=== PATIENT | male | born 1985 | race Hispanic/Latino ===

== ENCOUNTER 2024-06-11 17:05 | Inpatient (IN) | payer SELFPAY ==
[2024-06-11 17:06] VITALS: BP 155/99; PULSE 81; RESP 18; TEMP 37.1; O2SAT 98; BMI 31.9
--- NOTE | 2024-06-11 18:26 | EDS_ITS ---
HPI History of Present Illness Chief Complaint: Substance Abuse Informant: patient Onset/Context/Timing Onset: Today Context: Gradual Onset Timing: Continuous Quality: Anxiety Location: Generalized Worsened by: Nothing Relieved by: Nothing Associated Symptoms Associated Symptoms: Positive for vomiting* and diarrhea*; Negative for fever*, rash*, seizure, tremor, palpatations, change in mental status, suicidal ideation or homicidal ideation Narrative Narrative: Patient presents requesting detox from Xanax. Patient states he started himself on Xanax due to seasonal depression. Patient states he had been taking 2 mg but weaned himself down to 1 mg. Patient states he was attempting to wean himself off of the Xanax at home. Patient states that he started having some anxiety, sweating, stomach cramping, insomnia, and decreased appetite. Patient also states he was feeling very irritable when he would wean his Xanax down. Patient admits to some vomiting and diarrhea. Patient denies any suicidal homicidal ideations. Patient admits to some subjective chills and sweats. Patient states he has never been to detox in the past. Patient states he normally takes 1 mg of Xanax per day. Patient states his last dose was 8 AM today. [facility] Medical History Substance abuse Anxiety Depression Non-smoker Hypertension GERD (gastroesophageal reflux disease) Medical History no medical history Home Medications ?Medication ?Instructions ?Recorded ?Last Taken ?Type anastrozole 06/11/24 Unknown History enclomifene 12.5 mg PO .twice a week 06/11/24 Unknown History omeprazole 20 mg capsule,delayed 20 mg PO DAILY 06/11/24 Unknown History release Allergy/AdvReac Type Severity Reaction Status Date / Time No Known Allergies Allergy Verified 06/11/24 17:06 Surgical History no surgical history no surgical history Social History Smoking Status: Never smoker ROS ROS ED Constitutional Constitutional ED: Reports chills, subjective and sweats; Denies fever(s) Eyes Eyes: Denies blurry vision or change in vision ENT ENT ED: Denies rhinorrhea or sore throat Cardiovascular Cardiovascular: Denies chest pain or palpitations Respiratory/Chest Respiratory/Chest: Reports dyspnea; Denies cough Gastrointestinal Gastrointestinal: Reports nausea and vomiting Genitourinary Genitourinary ED: Denies dysuria or hematuria Musculoskeletal Musculoskeletal: Denies back pain or neck pain Integumentary Denies abscess or rash Neurologic Neurologic: Reports headache(s); Denies weakness Allergic/Immunologic Allergic/Immunologic ED: Denies mouth swelling or urticaria EXAM Physical Exam Const Vital Signs: 06/11/24 17:06 06/11/24 19:06 Temperature 98.7 F Temperature Source Oral Pulse Rate 81 79 Respiratory Rate 18 16 Blood Pressure 155/99 H 142/79 H Blood Pressure Mean 117 100 Pulse Ox 98 98 Oxygen Delivery Method Room Air Positive well nourished and well developed General Appearance ED: well developed and NAD HEENT Reports moist mucous membranes Neck supple and no JVD Resp normal respiratory effort and clear to auscultation bilaterally Cardio regular rate and regular rhythm GI soft to palpation, non-tender and non-distended Neuro oriented x3, CN's II-XII intact bilaterally and no sensory deficits noted Mittie Coma Scale: document GCS findings Spontaneous Obeys Commands Oriented 15 Sensorium / Orientation: alert Motor Exam: strength 5/5 throughout Psych mental status grossly normal and thought process normal MDM MDM MDM Narrative Medical decision making narrative: Medical screening labs will be obtained. CBC will be obtained to assess for leukocytosis and anemia. Basic metabolic profile will be obtained to assess for electrolyte abnormality and renal function. Urine drug screen will be obtained to assess for substance abuse. Serum alcohol level will be obtained to assess for alcohol intoxication. Lab Data Attestation: I reviewed the patient's lab results. Lab results narrative: CBC was reviewed. Hemoglobin was slightly elevated at 16.9. The remainder is within normal limits. Basic metabolic profile was reviewed. Creatinine was slightly elevated at 1.34. Remainder is within normal limits. Urine tox screen was reviewed and was positive for cannabinoids and benzodiazepines. Serum alcohol level was reviewed and was negative. Labs: Laboratory Results - last 24 hr 06/11/24 18:33 WBC 8.8 RBC 6.26 H Hgb 16.9 H Hct 50.5 MCV 80.7 MCH 27.0 MCHC 33.5 RDW Std Deviation 37.6 RDW Coeff of [place]phon[place] 12.9 Plt Count 304 MPV 10.3 Immature Gran % (Auto) 0.100 Neut % (Auto) 57.1 Lymph % (Auto) 33.4 [place] % (Auto) 7.3 Eos % (Auto) 1.5 Baso % (Auto) 0.6 Absolute Neuts (auto) 5.0 Absolute Lymphs (auto) 2.93 Nucleated RBC % 0 Sodium 140 Potassium 3.8 Chloride 105 Carbon Dioxide 33.0 H Anion Gap 2 L BUN 15 Creatinine 1.34 H Estim Creat Clear Calc 85.31 Est GFR (MDRD) Af Amer 77 Est GFR (MDRD) Non-Af 64 BUN/Creatinine Ratio 11.2 Glucose 106 Calcium 9.6 Urine Opiates Screen NEGATIVE Urine Methadone Screen NEGATIVE Ur Barbiturates Screen NEGATIVE Ur Phencyclidine Scrn NEGATIVE Ur Amphetamines Screen NEGATIVE MDMA (Ecstasy) Screen NEGATIVE U Benzodiazepines Scrn POSITIVE H Urine Cocaine Screen NEGATIVE U Cannabinoids Screen POSITIVE H Ur Drug Screen Comment Ethyl Alcohol 6.0 Management Discussion w/another healthcare provider: Hospitalist Treatment and Re-Evaluation Narrative: Case was discussed with hospitalist. She will admit the patient to her service. Patient understood and was agreeable with the plan. All questions were answered. Discharge Plan Dx/Rx/DC Orders Clinical Impression: Benzodiazepine withdrawal, Benzodiazepine dependence, Marijuana use Disposition Disposition: Acute Care Hospital [facility] Discharge Date/Time: 06/11/24 20:10
[2024-06-11 19:00] LABS: Anion Gap 2 (5-15); BUN 15 mg/dL (7-18); BUN/Creat Ratio 11.2 RATIO (10-20); Calcium,Total 9.6 mg/dL (8.5-10.1); Chloride 105 mmol/L (98-107); Creatinine, Serum 1.34 mg/dL (0.70-1.30); EST Glomerular Filtration Rate 64 mL/min (>60); Est Glom Filt Rate - Afr Amer 77 mL/min (>60); Estimated Creatinine Clearance 85.31 ml/min; Glucose 106 mg/dL (74-106); Potassium 3.8 mmol/L (3.5-5.1); Sodium Level 140 mmol/L (136-145)
[2024-06-11 19:01] LABS: Absolute Lymphocyte Count 2.93 X10^3/uL (0.83-4.51); Basophil# 0.05 X10^3/uL; Basophil% 0.6 % (0-1); Eosinophil# 0.13 X10^3/uL; Eosinophils% 1.5 % (0-5); Hematocrit 50.5 % (40-54); Hemoglobin 16.9 g/dL (13.0-16.5); Lymphocyte # 2.93 X10^3/ul (0.83-4.51); Lymphocyte % 33.4 % (19-41); Mean Corp Hgb Conc 33.5 g/dL (32-36); Mean Corpuscular Volume 80.7 fL (80-94); Mean Platelet Vol. 10.3 fl (6.2-12.0); Monocyte# 0.64 X10^3/uL; Monocyte% 7.3 % (0-10); NRBC Flagged by Analyzer 0 % (0-5); Neutrophil % 57.1 % (47-70); Platelet Count 304 K/mm3 (150-450); RBC Distribution Width CV 12.9 % (11.6-14.6); RBC Distribution Width SD 37.6 fl (35.1-43.9); Red Blood Count 6.26 M/mm3 (4.6-6.2); White Blood Count 8.8 K/mm3 (4.4-11.0)
[2024-06-11 19:06] VITALS: BP 142/79; PULSE 79; RESP 16; O2SAT 98
[2024-06-11 19:06] LABS: Amphetamine Urine VISTA NEGATIVE (<1000 ng/mL); Barbiturate Urine VISTA NEGATIVE (< 200 ng/mL); Benzodiazepine Urine VISTA POSITIVE (< 200 ng/mL); Cocaine Urine VISTA NEGATIVE (< 300 ng/mL); Ecstacy Urine VISTA NEGATIVE (< 500 ng/mL); Methadone Urine VISTA NEGATIVE (< 300 ng/mL); PCP Urine VISTA NEGATIVE (< 25 ng/mL); THC Urine VISTA POSITIVE (< 50 ng/mL); Vista UDS pH Range 5
--- NOTE | 2024-06-11 19:20 | PCM.HP.STD ---
HPI - General General Date of Admission: 06/11/24 Date of Service: 06/11/24 Chief Complaint: Benzodiazepine detox HPI Narrative THERESA MAY, is a 38 M with a history of GERD presented [facility] ED 06/11/2024 requesting benzodiazepine detox. In the ED patient vitally stable without any marked lab abnormalities, hospitalist contacted for admission for detox. Patient evaluated bedside reports since March he has been using Xanax for seasonal depression. Started with 2 mg but it was too sedating so he decreased to 1 mg and has been taking that routinely. He noticed that he gets withdrawal symptoms when he does not have it so he wanted to go off of it but when he tried not to take it or cut down further he would get very anxious and agitated prompting him to come to the ED for assistance with detox. Last use was 8 AM and he reports he is beginning to feel withdrawal symptoms with little bit of a headache and feels anxious and agitated and just unwell in general. No seizure activity at home. Patient uses marijuana occasionally but denies any substance use, routine alcohol use, tobacco use [facility] Medical History (Updated 06/11/24 @ 18:48 by Lisa Bergeron) Anxiety Depression GERD (gastroesophageal reflux disease) Hypertension Non-smoker Substance abuse Medical History no medical history Home Medications ?Medication ?Instructions ?Recorded ?Last Taken ?Type anastrozole 06/11/24 Unknown History enclomifene 12.5 mg PO .twice a week 06/11/24 Unknown History omeprazole 20 mg capsule,delayed 20 mg PO DAILY 06/11/24 Unknown History release Allergy/AdvReac Type Severity Reaction Status Date / Time No Known Allergies Allergy Verified 06/11/24 17:06 Surgical History no surgical history Social History Smoking Status: Never smoker ROS ROS Narrative General: Feels generally unwell HENT: Little bit of a headache EYES: Denies changes in vision Resp: Denies cough, denies shortness of breath Cardiac: Denies chest pain GI: Little bit of GI upset since trying to cut back on the Xanax : Denies changes in urination Extremity: Denies swelling MSK: Denies weakness Neuro: Denies any numbness/tingling Heme: Denies any bleeding or bruising Skin: Denies rashes Psychiatric: Anxious Vital Signs Vital Signs Vital Signs: 06/11/24 17:06 Temperature 98.7 F Temperature Source Oral Pulse Rate 81 Respiratory Rate 18 Blood Pressure 155/99 H Blood Pressure Mean 117 Pulse Ox 98 Weight Weight: 95.254 kg Body Mass Index (BMI) 31.9 Physical Exam Narrative General: Alert, oriented, no apparent distress HEENT: Atraumatic, normocephalic Eyes: Anicteric, normal conjunctiva, extraocular movements grossly intact Neck: Supple Respiratory: Clear to auscultation bilaterally, normal respiratory effort Cardiovascular: Regular rate and rhythm GI: Soft, nontender, nondistended Extremities: No edema Musculoskeletal: Moving all extremities Neuro: No overt focal neurological deficits Skin: No rashes appreciated Psych: Cooperative Results Lab / Micro Data 06/11/24 18:33 06/11/24 18:33 Labs: Laboratory Results - last 24 hr 06/11/24 18:33: WBC 8.8, RBC 6.26 H, Hgb 16.9 H, Hct 50.5, MCV 80.7, MCH 27.0, MCHC 33.5, RDW Std Deviation 37.6, RDW Coeff of Alphonso 12.9, Plt Count 304, MPV 10.3, Immature Gran % (Auto) 0.100, Neut % (Auto) 57.1, Lymph % (Auto) 33.4, [place] % (Auto) 7.3, Eos % (Auto) 1.5, Baso % (Auto) 0.6, Absolute Neuts (auto) 5.0, Absolute Lymphs (auto) 2.93, Nucleated RBC % 0, Sodium 140, Potassium 3.8, Chloride 105, Carbon Dioxide 33.0 H, Anion Gap 2 L, BUN 15, Creatinine 1.34 H, Estim Creat Clear Calc 85.31, Est GFR (MDRD) Af Amer 77, Est GFR (MDRD) Non-Af 64, BUN/Creatinine Ratio 11.2, Glucose 106, Calcium 9.6, Urine Opiates Screen NEGATIVE, Urine Methadone Screen NEGATIVE, Ur Barbiturates Screen NEGATIVE, Ur Phencyclidine Scrn NEGATIVE, Ur Amphetamines Screen NEGATIVE, MDMA (Ecstasy) Screen NEGATIVE, U Benzodiazepines Scrn POSITIVE H, Urine Cocaine Screen NEGATIVE, U Cannabinoids Screen POSITIVE H, Ur Drug Screen Comment , Ethyl Alcohol 6.0 Assessment & Plan Assessment/Plan (1) Benzodiazepine withdrawal: PLAN: Plan # Benzodiazepine use disorder - We will begin CIWA every 4 for 24 hours, then every 6 for 24 hours, then every 12 until discharge -Will begin phenobarbital taper, patient takes minimal Xanax but he is very symptomatic and sensitive to stopping this and do not think he will do well with just as needed CIWA coverage however suspect that typical phenobarb taper would be overly sedating given he only uses 1 mg of Xanax daily therefore will start pt on lower dose of the taper, 64.8mg po q6h and then down to 32.4mg po q6h, discussed w/ pharmacy and taper will be adjusted -Gabapentin 300 mg every 8 as needed -Will start Bentyl and hydroxyzine as needed as well as loperamide as needed -Trazodone 100 mg p.o. nightly as needed sleep -Begin thiamine and folic acid supplementation -Zofran as needed for nausea -Case management consult to assist with discharge planning -EtOH 6 -UDS positive for benzodiazepines and cannabinoids #GERD -Continue PPI #DVT ppx: Low risk, ambulatory Stacia Childress MD Charges/Coding Visit Charges Inpatient E&M: 92976 Init Hosp L1
[2024-06-11 19:22] VITALS: BP 142/79; PULSE 80; RESP 16; TEMP 36.6; O2SAT 99
[2024-06-11 20:21] VITALS: BP 153/74; PULSE 69; RESP 18; TEMP 37.2; O2SAT 98
[2024-06-11 20:25] VITALS: BMI 33.0
[2024-06-11] MEDS: Phenobarbital 32.4 MG Tablet PO (20:51)
[2024-06-11] MEDS: traZODone 100 MG Tablet PO (22:59)
[2024-06-12] MEDS: hydrOXYzine PAM 25 MG Capsule 50 MG PO ×2 (01:34→17:52)
[2024-06-12] MEDS: Phenobarbital 32.4 MG Tablet PO ×4 (01:34→20:20)
[2024-06-12 02:08] VITALS: BP 123/77; PULSE 60; RESP 16; TEMP 36.7; O2SAT 98
--- NOTE | 2024-06-12 07:35 | PCM.PN.HOSP ---
Reason for Visit Reason for Visit: Diagnoses Sedative, hypnotic or anxiolytic use, unspecified with withdrawal, unspecified (06/11/24) Subjective Subjective Feeling better. Had been trying to wean himself off of bars of Xanax. But despite that he just been feeling very unwell. Thus far since initiation of the phenobarbital he is feeling better. Objective Data Objective Data Vital Signs: Vital Signs Temp Pulse Resp BP Pulse Ox O2 Del Method 36.7 C 60 16 123/77 H 98 Room Air 06/12/24 02:08 06/12/24 02:08 06/12/24 02:08 06/12/24 02:08 06/12/24 02:08 06/12/24 02:08 Oxygen Delivery Method Room Air Weight: 99 kg Body Mass Index (BMI) 33.0 Lab / Micro Data 06/11/24 18:33 06/11/24 18:33 Labs: Laboratory Results - last 24 hr 06/11/24 18:33: WBC 8.8, RBC 6.26 H, Hgb 16.9 H, Hct 50.5, MCV 80.7, MCH 27.0, MCHC 33.5, RDW Std Deviation 37.6, RDW Coeff of Alphonso 12.9, Plt Count 304, MPV 10.3, Immature Gran % (Auto) 0.100, Neut % (Auto) 57.1, Lymph % (Auto) 33.4, [place] % (Auto) 7.3, Eos % (Auto) 1.5, Baso % (Auto) 0.6, Absolute Neuts (auto) 5.0, Absolute Lymphs (auto) 2.93, Nucleated RBC % 0, Sodium 140, Potassium 3.8, Chloride 105, Carbon Dioxide 33.0 H, Anion Gap 2 L, BUN 15, Creatinine 1.34 H, Estim Creat Clear Calc 85.31, Est GFR (MDRD) Af Amer 77, Est GFR (MDRD) Non-Af 64, BUN/Creatinine Ratio 11.2, Glucose 106, Calcium 9.6, Urine Opiates Screen NEGATIVE, Urine Methadone Screen NEGATIVE, Ur Barbiturates Screen NEGATIVE, Ur Phencyclidine Scrn NEGATIVE, Ur Amphetamines Screen NEGATIVE, MDMA (Ecstasy) Screen NEGATIVE, U Benzodiazepines Scrn POSITIVE H, Urine Cocaine Screen NEGATIVE, U Cannabinoids Screen POSITIVE H, Ur Drug Screen Comment , Ethyl Alcohol 6.0 Physical Exam Const alert and no apparent distress HEENT head/scalp atraumatic and moist oral mucous membranes Resp normal respiratory effort and no retractions Neuro Sensorium / Orientation: awake and alert Speech: speech normal Psych affect normal Assessment & Plan Assessment/Plan (1) Benzodiazepine withdrawal: PLAN: Plan Benzodiazepine withdrawal phenobarbital taper pt to follow up at [facility] DVT ppx: Low risk, ambulatory Charges/Coding Visit Charges Inpatient E&M: 49787 Subs Hosp L1
[2024-06-12 08:17] VITALS: BP 134/81; PULSE 60; RESP 15; TEMP 36.8; O2SAT 99
[2024-06-12] MEDS: Thiamine Hydrochloride 100 MG Tablet PO (08:38)
[2024-06-12] MEDS: Folic Acid 1 MG Tablet PO (08:38)
--- NOTE | 2024-06-12 11:09 | ADDICTION ---
Met with pt to complete RAMP Assessments and d/c planning. Client reports that he has a history of generalized anxiety disorder, which is what led him to the use of the Xanax. This worker recommends that client participate in counseling to work through symptoms of anxiety and gain coping skills to maintain sobriety. He reports that he has an assessment set up at [facility]. He reports they are who suggest he complete detox before starting counseling.
--- NOTE | 2024-06-12 11:17 | CASEMGMT ---
Social Work- SW met with pt to discuss self-pay status. Pt was seen by [facility] earlier; pt does not qualify for SEUN, but pt may qualify for HCAP. SW provided PCP list, as well as Dixie Bueno and PRIN[facility] monsivais. Pt reports that he works full-time and does not have any other needs at this time. Pt plans to follow-up with [facility] coordinator in respect to substance use. Pt reports no mental health needs at this time. SW remains available to follow. MARIA INES Olmedo
[2024-06-12 14:42] VITALS: BP 125/76; PULSE 77; RESP 16; TEMP 37.2; O2SAT 94
[2024-06-12] MEDS: Pantoprazole Sodium 20 MG Tablet PO (14:45)
[2024-06-12 17:45] VITALS: BP 132/65; PULSE 68; RESP 16; TEMP 37.1; O2SAT 98
[2024-06-12] MEDS: Acetaminophen 325 MG Tablet 650 MG PO (17:52)
[2024-06-12] MEDS: Loperamide 2 MG Capsule PO (20:25)
[2024-06-12] MEDS: traZODone 100 MG Tablet PO (20:25)
[2024-06-12] MEDS: Gabapentin 300 MG Capsule PO (21:42)
[2024-06-13] MEDS: Phenobarbital 32.4 MG Tablet PO ×3 (02:28→16:02)
--- NOTE | 2024-06-13 07:36 | PN.HOSP_ITS ---
Reason for Visit Reason for Visit: Diagnoses Sedative, hypnotic or anxiolytic use, unspecified with withdrawal, unspecified (06/11/24) Subjective Subjective Feeling better overall. Objective Data Objective Data Vital Signs: Vital Signs Temp Pulse Resp BP Pulse Ox O2 Del Method 37.1 C 68 16 132/65 H 98 Room Air 06/12/24 17:45 06/12/24 17:45 06/12/24 17:45 06/12/24 17:45 06/12/24 17:45 06/12/24 17:45 Oxygen Delivery Method Room Air Weight: 99 kg Body Mass Index (BMI) 33.0 Lab / Micro Data 06/11/24 18:33 06/11/24 18:33 Physical Exam Const alert and no apparent distress Constitutional Narrative: comfortable. HEENT head/scalp atraumatic and moist oral mucous membranes Neuro Sensorium / Orientation: awake and alert Psych affect normal Assessment & Plan Assessment/Plan (1) Benzodiazepine withdrawal: PLAN: Plan Benzodiazepine withdrawal * phenobarbital taper * pt to follow up at [facility] for further addiction recovery services. * Overall the patient is feeling better. Anticipate discharge in 1 to 2 days if he continues to feel well. Patient unable to be placed on a benzodiazepine taper as he does not have a primary care doctor and was getting the Xanax illicitly. It is unclear if the Xanax was cut with any other agent. DVT ppx: Low risk, ambulatory Charges/Coding Visit Charges Inpatient E&M: 45892 [facility] Hosp L1
[2024-06-13] MEDS: Folic Acid 1 MG Tablet PO (08:11)
[2024-06-13] MEDS: Thiamine Hydrochloride 100 MG Tablet PO (08:11)
--- NOTE | 2024-06-13 08:18 | NURSING ---
pt a&ox3. therapist phys charting reviewed, no change in assessment noted. pt denies all needs at present. call light within reach.
[2024-06-13 08:50] VITALS: BP 129/79; PULSE 55; RESP 18; TEMP 36.3; O2SAT 98
[2024-06-13] MEDS: Pantoprazole Sodium 20 MG Tablet PO (09:41)
[2024-06-13 13:45] VITALS: BP 125/71; PULSE 63; RESP 18; TEMP 36.7; O2SAT 99
[2024-06-13] MEDS: hydrOXYzine PAM 25 MG Capsule 50 MG PO ×2 (16:05→21:13)
[2024-06-13 20:12] VITALS: BP 134/84; PULSE 60; RESP 17; TEMP 36.8; O2SAT 99
[2024-06-13] MEDS: traZODone 100 MG Tablet PO (21:13)
[2024-06-14] MEDS: Thiamine Hydrochloride 100 MG Tablet PO (08:27)
[2024-06-14] MEDS: Folic Acid 1 MG Tablet PO (08:27)
[2024-06-14] MEDS: Pantoprazole Sodium 20 MG Tablet PO (08:27)
[2024-06-14 08:43] VITALS: BP 139/78; PULSE 63; RESP 15; TEMP 36.9; O2SAT 97
--- NOTE | 2024-06-14 12:25 | PCM.DC.SUM ---
Providers Date of Admission: 06/11/24 Date of Discharge: 06/14/24 Primary Care Physician: No Primary Care Phys Reason For Visit: BENZODIAZEPINE WITHDRAWL Diagnosis Discharge Diagnosis (1) Benzodiazepine withdrawal: Status: Acute Code(s): F13.939 - Sedative, hypnotic or anxiolytic use, unspecified with withdrawal, unspecified Medications at Discharge Home Medications anastrozole 06/11/24 enclomifene 12.5 mg PO .twice a week 06/11/24 omeprazole 20 mg capsule,delayed release 20 mg PO DAILY 06/11/24 Hospital Course Operations None Procedures None Summary of Care Provided Minutes Spent on Discharge: 30 Hospital Course: Mr. Rosales is a 38-year-old male who presented to emergency department [facility] on 06/11/2020 for for benzodiazepine detox. Patient states he started using benzodiazepines as treatment for his anxiety and depression. He has been using since March of this past year. He started with 2 mg but found that too sedating so he decreased the dose to 1 mg and has been taking it routinely. He noticed that he gets withdrawal symptoms when he does not have it so he wants to come off of it completely. He tried to cut down and stop at home however he would get very anxious and agitated which prompted him to come to the emergency department for assistance with detox. His last use was at 8 AM on the day of admission and he began feeling withdrawal symptoms to include a little bit of a headache, anxiousness, and agitation. He has had no seizures related to withdrawal. He also admits to occasional marijuana use but denies any other substance abuse including alcohol or tobacco. Vital signs on presentation showed a temperature of 98.7, heart rate 81, blood pressure 155/99, respiratory was 18 oxygen saturation was 98% room air. CBC on presentation was overtly unremarkable other than a hemoglobin that was slightly above normal at 16.9. I do suspect he was mildly dehydrated at this time. Serum creatinine was slightly elevated at 1.34 with an unknown baseline however he does not appear to have a contraction alkalosis with a serum bicarb of 33. He was given IV fluids in the emergency department. Toxicology screen was positive for cannabinoids and benzodiazepines. Alcohol level was 6. Patient was admitted and placed on a phenobarbital taper. He had an overall uneventful detox and was feeling much better after 3 days of treatment. He states he has longstanding anxiety issues and we discussed him following with psychiatry after discharge and he was amenable to this. I did give him a referral for Dr. Tereso Lim and asked him to call make an appointment as soon as Dr. Lim has availability as scheduled. He has resources from [facility] and plans to follow-up with them after discharge. Patient was able to be discharged in stable condition on 06/14/2024. Discharge diagnoses: Benzodiazepine abuse/withdrawal Cannabinoid abuse Dehydration Elevated serum creatinine Erythrocytosis secondary to hemoconcentration Obesity Physical Exam Const alert, oriented x3, no apparent distress, no limitations, healthy appearing and well nourished; Negative for average body habitus Constitutional Narrative: Obese, middle-aged, white male, very pleasant, lying in bed, appears comfortable, nontoxic, watching television General Appearance: cooperative, comfortable, well kempt and well developed Orientation / Consciousness: awake, oriented to person, oriented to place and oriented to time HEENT normocephalic, head/scalp atraumatic, hearing grossly normal bilaterally and moist oral mucous membranes Resp normal respiratory effort, no retractions, no use of accessory muscles and clear to auscultation bilaterally Auscultation: Negative for rales, rhonchi or wheezes Cardio regular rate, regular rhythm, S1 normal heart sound, S2 normal heart sound, no murmurs, no rub, no gallops and no clicks GI normal to inspection, nondistended, normoactive bowel sounds, soft to palpation and non-tender Extremity no clubbing, cyanosis or edema Extremity Narrative: Radial and pedal pulses are 2+ Neuro oriented x3, moves all extremities and no focal motor deficits Speech: speech normal Psych affect normal Psych Narrative: Extremely pleasant, eye contact is good, patient interacts appropriately Weight / BMI Weight Weight: 99 kg Body Mass Index (BMI) 33.0 ABG / Lab / Microbiology Data 06/11/24 18:33 06/11/24 18:33 D/C Instructions Discharge Diet: Low fat / Low cholesterol DC O2, CPAP, BIPAP Needs Home O2 Discharge instructions: No Meaningful Use Info Meaningful Use Meaningful Use Diagnoses (Choose all that apply): None applicable Ischemic Stroke Statin Dosing Therapy Reference: STATIN DOSE THERAPY REFERENCE: * Patients > 75 years receive moderate or high dose statin therapy. * Patients 75 years or YOUNGER should receive HIGH intensity statin dose unless contraindicated. You will be required to document reason for non-treatment if statin daily dose does not meet guidelines. HIGH DOSE STATIN THERAPY DAILY Atorvastatin > than or = to 40 mg Rosuvastatin > than or = to 20 mg Amlodipine + Atorvastatin > than or = to 2.5/40 mg Ezetimibe + Simvastatin 10/80 mg Simvastatin 80mg Discharge Plan Admission Admit Date/Time: 06/11/24 19:20 Primary Reason for Your Visit: Benzodiazepine detox Attending Provider: Korin Bob Primary Care Provider: Care Physician,No Primary Consulting Providers: Stacia Childress; Reed Bills Discharge Orders/Prescriptions Prescriptions: Continued omeprazole 20 mg capsule,delayed release(DR/EC) 20 mg PO DAILY enclomifene 12.5 mg 12.5 mg PO .twice a week Patient Comments: Takes it tuesday and Tuesday. anastrozole Rx Instructions: strength unknown. Did not bring them with him. Referrals / Follow Up: Tereso Lim DO [Med Staff - [employer]] - See Referral Note (At first available appointment) Care Physician,No Primary [Primary Care Provider] - Disposition Disposition (needs filled in before D/C Order can be placed): Home, Self Care Charges/Coding Visit Charges Inpatient E&M: 82524 Disch Hosp
[2024-06-14 12:50] VITALS: BP 145/87; PULSE 92; RESP 18; TEMP 37.1; O2SAT 100
== END 2024-06-14 12:58 | disposition home or self-care (01) | DRG 897 ==
LOC: ED 19:23 → MS3 19:50
PROVIDERS: Admitting Provider Internal Medicine; Emergency Provider Emergency Medicine; Visit Provider Internal Medicine
DX: F13.939 Sedative, hypnotic or anxiolytic use, unspecified with withdrawal, unspecified (principal); E66.9 Obesity, unspecified; I10 Essential (primary) hypertension; E86.0 Dehydration; F12.90 Cannabis use, unspecified, uncomplicated; K21.9 Gastro-esophageal reflux disease without esophagitis; F41.9 Anxiety disorder, unspecified; R79.89 Other specified abnormal findings of blood chemistry; Z68.33 Body mass index [BMI] 33.0-33.9, adult
CPT/HCPCS: 80048; 80307; 82077; 85025; 99283